=== PATIENT | female | born 1950 | race Caucasian/White ===

== ENCOUNTER 2016-10-24 07:20 | Day surgery (SDC) | payer OTHER ==
[2016-10-24] VITALS (9 sets, daily range): BP systolic 114–127; BP diastolic 65–80; PULSE 50–63; RESP 16; O2SAT 99
[~2016-10-24 07:20] MED LIST: MULT-885 PO
--- NOTE | 2016-10-24 09:33 | NUR ---
Phlebotomy: Pt arrived to [facility] [place] for possible phlebotomy. Labs drawn and Hct at 42.7. Phlebotomy done as ordered and 450cc removed. VSS during treatment. Pt left the unit ambulatory in stable condition.
[2016-12-01] MEDS ORDERED: CALC200T6 PO (15:29)
== END 2016-10-24 23:59 | disposition home or self-care (01) ==
LOC: MOCO 07:20
PROVIDERS: ATTEND Specialist
DX: E83.119 Hemochromatosis, unspecified (principal)